=== PATIENT | male | born 1990 | race Caucasian/White ===

== ENCOUNTER 2017-01-29 23:19 | Emergency (ER) | payer OTHER, BC ==
[~2017-01-29] VITALS: Ht 154.9 cm; Wt 72.7 kg
[2017-01-29 23:46] LABS: HEMATOCRIT 49.2 % (38.0-50.0); MCH 29.8 PG (29.0-34.0); MCHC 34.6 G/DL (30.0-36.0); MCV 86.3 FL (86-99); MEAN PLAT.VOLUME 9.4 uM^3 (9.0-12.4); PLATELET COUNT 280 K/uL (156-360); RBC DIS.WIDTH-CV 11.7 % (11.8-14.6); RBC DIS.WIDTH-SD 36.7 % (39-53); WHITE BLOOD COUNT 10.4 K/uL (4.1-10.2)
[2017-01-29 23:54] LABS: INTER. NORMALIZED RATIO 0.9; PROTHROMBIN TIME 9.7 SEC (10.2-12.9)
[2017-01-29 23:55] LABS: CHLORIDE 106 mEq/L (99-109); POTASSIUM 3.2 mEq/L (3.7-5.4); SODIUM 142 mEq/L (136-147)
[2017-01-29 23:57] LABS: GLUCOSE 158 mg/dL (70-99); PTT 27.2 SEC (25-37)
[2017-01-29 23:59] LABS: ANION GAP 15 MEQ/L (2-14); TOTAL BILIRUBIN 0.5 mg/dL (0.0-1.0)
[2017-01-30] LABS: SERUM ETHYL ALCOHOL 164 mg/dL
[2017-01-30 00:01] LABS: ALKALINE PHOSPHATASE 60 IU/L (3-129); GFR ESTIMATE (CALCULATED) > 59 mL/min/
[2017-01-30 00:02] LABS: UREA NITROGEN (BUN) 15 mg/dL (9-23)
[2017-01-30 00:04] LABS: LIPASE 36 U/L (1.0-51.0)
[2017-01-30 00:42] LABS: ADD MIUA? YES; BILIRUBIN NEGATIVE; BLOOD SMALL; COLOR YELLOW ((YELLOW)); GLUCOSE (STRIP) 50; KETONES 5; LEUKOCYTES NEGATIVE; NITRITE NEGATIVE; PROTEIN (STRIP) 30; SPECIFIC GRAVITY 1.036 (1.000-1.030); UROBILINOGEN 0.2 MG/DL (0.2-1.0)
[2017-01-30 00:46] LABS: BACTERIA NONE SEEN /HPF; EPITHELIAL CELLS NONE SEEN /HPF; MUCUS NONE SEEN /LPF; RED BLOOD CELLS 0-5 /HPF (0-5); UCUL ADDED? NO; WHITE BLOOD CELLS 0-5 /HPF (0-5)
[2017-01-30 00:51] LABS: AMPHETAMINE NEGATIVE (500 ng/mL); BARBITURATES NEGATIVE (200 ng/mL); BENZODIAZEPINES NEGATIVE (150 ng/mL); COCAINE NEGATIVE (150 ng/mL); METHADONE NEGATIVE (200 ng/mL); METHAMPHETAMINE NEGATIVE (500 ng/mL); OPIATES (MORPHINE) NEGATIVE (100 ng/mL); OXYCODONE NEGATIVE (100 ng/mL); PHENCYCLIDINE NEGATIVE (25 ng/mL); PROPOXYPHENE NEGATIVE (300 ng/mL); THC CANNABINOIDS NEGATIVE (50 ng/mL); TRICYCLIC ANTIDEPRESSANTS NEGATIVE (300 ng/mL)
[2017-01-30 00:52] LABS: INTERNAL CONTROLS VALID? YES
[2017-01-30] MEDS ORDERED: PERCOCET 5/31 TABLET PO (01:30)
[2017-01-30 04:19] VITALS: BP 137/65
== END 2017-01-30 04:20 | disposition home or self-care (01) ==
LOC: TRA 23:19 → EME 23:19 → TRA 01-30 04:20
PROVIDERS: Emergency Medicine
PROC: 2W3CX1Z Immobilization of Right Lower Arm using Splint (ICD-10-PCS; principal; 2017-01-29)
PROC: 0PSJXZZ Reposition Left Radius, External Approach (ICD-10-PCS; 2017-01-30)
DX: S52.512A Displaced fracture of left radial styloid process, initial encounter for closed fracture (principal); S52.501A Unspecified fracture of the lower end of right radius, initial encounter for closed fracture; V29.9XXA Motorcycle rider (driver) (passenger) injured in unspecified traffic accident, initial encounter; F10.129 Alcohol abuse with intoxication, unspecified; Y90.6 Blood alcohol level of 120-199 mg/100 ml
CPT/HCPCS: 70450; 71260; 72125; 73100; 73110; 74177; 80053; 81003; 83605; 83690; 85027; 85610; 85730; 99281; 99285; G0480; J2405; J3010; J7030